=== PATIENT | male | born 1970 | race Two or more races ===

== ENCOUNTER 2019-08-04 16:55 | Inpatient (IN) | payer MEDICARE ==
[~2019-08-04] VITALS: Ht 177.8 cm; Wt 103.2 kg
[2019-08-04] MEDS ORDERED: LOSA-30 PO (17:04)
[2019-08-04] MEDS ORDERED: ONDANSETRON HCL 4 MG/2 ML VIAL IVP PRN (17:45)
[2019-08-04] MEDS ORDERED: ACETAMINOPHEN 325 MG TABLET PO PRN (17:45)
[2019-08-04] MEDS ORDERED: 0.9% SODIUM CHLORIDE 10 ML SYRINGE IVP PRN ×2 (17:45→20:15)
[2019-08-04] MEDS ORDERED: AZITHROMYCIN 500 MG/NS 250 ML IV ONE (18:00)
[2019-08-04] MEDS ORDERED: FAMOTIDINE 10 MG/ML 2 ML VIAL IVP SCH (20:00)
[2019-08-04] MEDS ORDERED: OXYGEN THERAPY IH SCH (20:00)
[2019-08-04] MEDS ORDERED: MAGNESIUM HYDROXIDE SUSPENSION 30 ML UDCUP PO PRN (20:15)
[2019-08-04] MEDS ORDERED: OxyCODONE HCL/ACETAMINOPHEN 5-325 MG TABLET PO PRN ×2 (20:15)
[2019-08-04 20:54] LABS: HEMATOCRIT 41.8 % (41-53); HEMOGLOBIN 14.3 g/dL (13.5-17.5); MEAN CORPUSCULAR HEMOGLOBIN 30.8 pg (26.0-34.0); MEAN CORPUSCULAR HGB CONC 34.2 G/dL (31.0-37.0); MEAN CORPUSCULAR VOLUME 90 fL (80-100); PLATELET COUNT (AUTO) 271 K/uL (150-450); RED BLOOD CELL COUNT(AUTO) 4.65 MIL/uL (4.50-5.90); RED CELL DISTRIBUTION WIDTH 13.2 % (11.5-14.5)
[2019-08-04 21:00] VITALS: BP 148/84
[2019-08-04] MEDS: HYDROXYCHLOROQUINE SULFATE 200 MG TABLET PO SCH (21:00)
[2019-08-04] MEDS ORDERED: HYDROXYCHLOROQUINE SULFATE 200 MG TABLET PO ONE (21:00)
[2019-08-04] MEDS: DOCUSATE SODIUM 100 MG CAPSULE PO SCH ×2 (21:00→21:54)
[2019-08-04] MEDS ORDERED: ZINC SULFATE 220 MG CAPSULE PO ONE (21:00)
[2019-08-04 21:09] LABS: ANION GAP 8 mmol/L (8-16); CARBON DIOXIDE 27 mmol/L (22-29); CHLORIDE 89 mmol/L (98-107); CREATININE 1.12 mg/dL (0.60-1.30); GLOMERULAR FILTR. RATE CALC > 60 mL/min (>60); GLUCOSE,RANDOM 141 mg/dL (70-110); POTASSIUM 3.1 mmol/L (3.5-5.1); UREA NITROGEN, BLOOD 15 mg/dL (7-18)
[2019-08-04 21:12] LABS: SODIUM SERUM 124 mmol/L (136-145)
[2019-08-04] MEDS ORDERED: POTASSIUM CHL 10 MEQ/WATER 50 ML IV PRN (21:30)
[2019-08-04] MEDS: ACETAMINOPHEN 325 MG TABLET PO PRN (21:54)
[2019-08-04] MEDS: POTASSIUM CHLORIDE 20 MEQ ER TABLET PO PRN (21:54)
[2019-08-04] MEDS: ENOXAPARIN SODIUM 60 MG/0.6 ML PF SYRINGE SQ SCH (21:54)
[2019-08-04] MEDS: FAMOTIDINE 10 MG/ML 2 ML VIAL IVP SCH (21:55)
[2019-08-04] MEDS: SODIUM CHLORIDE 0.9% 1,000 ML IV SCH (21:55)
[2019-08-04 23:19] LABS: BAND NEUTROPHILS % (MANUAL) 16 % (0-5); LYMPHOCYTES % (MANUAL) 4 % (22-44); MONOCYTES % (MANUAL) 5 % (2-9); SEGMENTED NEUTROPHILS % 75 % (40-70)
[2019-08-05] VITALS (7 sets, daily range): BP systolic 138–150; BP diastolic 69–96
[2019-08-05] MEDS ORDERED: PNEUMOCOCCAL VACCINE POLYVALENT 0.5 ML VIAL [PPSV23] IM ONE (00:15)
[2019-08-05] MEDS ORDERED: IOVERSOL 350 MG/ML 100 ML VIAL ONE (01:39)
[2019-08-05] MEDS ORDERED: SODIUM CHLORIDE 0.9% 100 ML ONE ×2 (01:39→04:48)
[2019-08-05] MEDS ORDERED: IOVERSOL 320 MG/ML 100 ML VIAL ONE (04:48)
[2019-08-05 07:32] LABS: BASOPHILS % (AUTO) 0.1 % (0.0-2.0); EOSINOPHILS % (AUTO) 0 % (1.0-6.0); HEMOGLOBIN 14.1 g/dL (13.5-17.5); LYMPHOCYTES # (AUTO) 0.5 K/uL (1.0-4.8); LYMPHOCYTES % (AUTO) 4.2 % (22.0-44.0); MEAN CORPUSCULAR HEMOGLOBIN 30.8 pg (26.0-34.0); MEAN CORPUSCULAR HGB CONC 34.3 G/dL (31.0-37.0); MEAN CORPUSCULAR VOLUME 90 fL (80-100); MONOCYTES # (AUTO) 0.8 K/uL (0.1-1.0); MONOCYTES % (AUTO) 6.3 % (2.0-9.0); NEUTROPHILS # (AUTO) 11.7 K/uL (1.8-7.7); PLATELET COUNT (AUTO) 296 K/uL (150-450); RED BLOOD CELL COUNT(AUTO) 4.56 MIL/uL (4.50-5.90); RED CELL DISTRIBUTION WIDTH 13.3 % (11.5-14.5)
[2019-08-05 07:52] LABS: NEUTROPHILS % (AUTO) 89.4 % (40.0-70.0)
[2019-08-05] MEDS: ENOXAPARIN SODIUM 60 MG/0.6 ML PF SYRINGE SQ SCH ×2 (08:32→21:04)
[2019-08-05] MEDS: SODIUM CHLORIDE 0.9% 1,000 ML IV SCH ×2 (08:32→15:01)
[2019-08-05] MEDS: HYDROXYCHLOROQUINE SULFATE 200 MG TABLET PO SCH ×2 (08:33→21:04)
[2019-08-05] MEDS: FAMOTIDINE 10 MG/ML 2 ML VIAL IVP SCH (08:33)
[2019-08-05] MEDS: DOCUSATE SODIUM 100 MG CAPSULE PO SCH ×2 (08:45→21:00)
[2019-08-05] MEDS ORDERED: ZINC SULFATE 220 MG CAPSULE PO SCH (09:00)
[2019-08-05 09:01] LABS: ALANINE AMINOTRANSFERASE 35 U/L (12-78); ALKALINE PHOSPHATASE 75 U/L (46-116); ASPARTATE AMINOTRANSFERASE 32 U/L (15-37); BILIRUBIN,TOTAL 0.6 mg/dL (0.1-1.0); CALCIUM, TOTAL 9.3 mg/dL (8.8-10.5); CHLORIDE 93 mmol/L (98-107); CREATINE KINASE, TOTAL ONLY 131 U/L (39-308); FERRITIN 1623 ng/mL (26-388); GLOMERULAR FILTR. RATE CALC > 60 mL/min (>60); GLUCOSE,RANDOM 92 mg/dL (70-110); LACTATE DEHYDROGENASE 278 U/L (85-227); POTASSIUM 3.1 mmol/L (3.5-5.1); SODIUM SERUM 130 mmol/L (136-145); TOTAL PROTEIN, SERUM 7.7 g/dL (6.4-8.2); TRIGLYCERIDES 216 mg/dL (15-150); UREA NITROGEN, BLOOD 16 mg/dL (7-18)
[2019-08-05 09:32] LABS: ANION GAP 18 mmol/L (8-16); CARBON DIOXIDE 19 mmol/L (22-29)
[2019-08-05 09:48] LABS: ALBUMIN 2.8 g/dL (3.4-5.0); C-REACTIVE PROTEIN QUANT 33.68 mg/dL (0.00-0.30)
[2019-08-05] MEDS: POTASSIUM CHLORIDE 20 MEQ ER TABLET PO PRN (11:17)
[2019-08-05] MEDS ORDERED: POTASSIUM CHL 10 MEQ/WATER 50 ML IV PRN (11:45)
[2019-08-05] MEDS: ACETAMINOPHEN 325 MG TABLET PO PRN (12:50)
[2019-08-05] MEDS ORDERED: LOPERAMIDE HCL 2 MG CAPSULE PO PRN (14:15)
[2019-08-05] MEDS: AZITHROMYCIN 500 MG/NS 250 ML IV SCH (17:58)
[2019-08-05] MEDS: CefTRIAXone 1 GM/DEXTROSE 50 ML IV SCH (21:50)
[2019-08-05] MEDS: ZINC SULFATE 220 MG CAPSULE PO SCH (22:45)
[2019-08-06] MEDS: SODIUM CHLORIDE 0.9% 1,000 ML IV SCH ×3 (02:49→21:00)
[2019-08-06 03:53] VITALS: BP 155/89
[2019-08-06 07:02] LABS: BASOPHILS % (AUTO) 0.3 % (0.0-2.0); EOSINOPHILS % (AUTO) 0.1 % (1.0-6.0); HEMATOCRIT 40.3 % (41-53); HEMOGLOBIN 13.4 g/dL (13.5-17.5); LYMPHOCYTES # (AUTO) 0.5 K/uL (1.0-4.8); LYMPHOCYTES % (AUTO) 6.5 % (22.0-44.0); MEAN CORPUSCULAR HEMOGLOBIN 30.3 pg (26.0-34.0); MEAN CORPUSCULAR HGB CONC 33.3 G/dL (31.0-37.0); MEAN CORPUSCULAR VOLUME 91 fL (80-100); MONOCYTES # (AUTO) 0.7 K/uL (0.1-1.0); MONOCYTES % (AUTO) 9.9 % (2.0-9.0); NEUTROPHILS % (AUTO) 83.2 % (40.0-70.0); PLATELET COUNT (AUTO) 306 K/uL (150-450); RED BLOOD CELL COUNT(AUTO) 4.43 MIL/uL (4.50-5.90); RED CELL DISTRIBUTION WIDTH 13.5 % (11.5-14.5)
[2019-08-06] MEDS: DOCUSATE SODIUM 100 MG CAPSULE PO SCH ×2 (09:00→21:00)
[2019-08-06] MEDS: ENOXAPARIN SODIUM 60 MG/0.6 ML PF SYRINGE SQ SCH ×2 (09:24→20:23)
[2019-08-06] MEDS: ZINC SULFATE 220 MG CAPSULE PO SCH ×2 (09:24→20:23)
[2019-08-06] MEDS: HYDROXYCHLOROQUINE SULFATE 200 MG TABLET PO SCH ×2 (09:25→20:23)
[2019-08-06] MEDS: FAMOTIDINE 10 MG/ML 2 ML VIAL IVP SCH (09:25)
[2019-08-06 09:36] LABS: C-REACTIVE PROTEIN QUANT 19.98 mg/dL (0.00-0.30)
[2019-08-06 12:49] VITALS: BP 161/119
[2019-08-06 15:32] VITALS: BP 168/98
[2019-08-06] MEDS: AZITHROMYCIN 500 MG/NS 250 ML IV SCH (16:19)
[2019-08-06 17:05] VITALS: BP 168/105
[2019-08-06 20:17] LABS: ABG A-A DIFF O2 574.5 mmHg (10-20.0); ABG BASE EXCESS 0.9 mmol/L (-2.0-3.0); ABG CARBOXYHEMOGLOBIN 0.5 % (0.0-1.5); ABG HCO3 25.6 mmol/L (22.0-26.0); ABG METHEMOGLOBIN 0.3 % (0.0-1.5); ABG OXYGEN CONTENT 19.3 mL/dL (15.0-23.0); ABG OXYGEN SATURATION 97.8 % (95.0-98.0); ABG PCO2 36 mmHg (35-45); ABG PH 7.458 (7.35-7.450); ABG TOTAL HEMOGLOBIN 14.1 G/dL (12.0-18.0); PO2, ARTERIAL BG 101.5 mmHg (84.0-92.0); SOURCE, BLOOD GAS ARTERIAL; TEMPERATURE, FAHRENHEIT, BG 99.5 FAHREN (96.0-98.6)
[2019-08-06 20:18] LABS: O2 DEVICE,BLOOD GAS NON REBREATHER (ROOM AIR); SITE, BLOOD GAS RT RADIAL
[2019-08-06 20:20] VITALS: BP 158/98
[2019-08-06] MEDS: AmLODIPine BESYLATE 10 MG TABLET PO SCH (20:23)
[2019-08-06] MEDS: CefTRIAXone 1 GM/DEXTROSE 50 ML IV SCH (20:24)
[2019-08-06 23:16] VITALS: BP 142/81
[2019-08-07] VITALS (8 sets, daily range): BP systolic 140–163; BP diastolic 67–95
[2019-08-07] MEDS: ACETAMINOPHEN 325 MG TABLET PO PRN ×3 (00:10→22:31)
[2019-08-07 08:37] LABS: BASOPHILS % (AUTO) 0.4 % (0.0-2.0); EOSINOPHILS % (AUTO) 0.1 % (1.0-6.0); HEMATOCRIT 39.6 % (41-53); HEMOGLOBIN 13.5 g/dL (13.5-17.5); LYMPHOCYTES # (AUTO) 0.3 K/uL (1.0-4.8); LYMPHOCYTES % (AUTO) 3.9 % (22.0-44.0); MEAN CORPUSCULAR HEMOGLOBIN 30.9 pg (26.0-34.0); MEAN CORPUSCULAR HGB CONC 34.2 G/dL (31.0-37.0); MEAN CORPUSCULAR VOLUME 91 fL (80-100); MONOCYTES # (AUTO) 0.6 K/uL (0.1-1.0); MONOCYTES % (AUTO) 7.7 % (2.0-9.0); NEUTROPHILS # (AUTO) 6.9 K/uL (1.8-7.7); PLATELET COUNT (AUTO) 323 K/uL (150-450); RED BLOOD CELL COUNT(AUTO) 4.37 MIL/uL (4.50-5.90); RED CELL DISTRIBUTION WIDTH 13.6 % (11.5-14.5)
[2019-08-07] MEDS: DOCUSATE SODIUM 100 MG CAPSULE PO SCH ×2 (09:00→22:06)
[2019-08-07 09:25] LABS: NEUTROPHILS % (AUTO) 87.9 % (40.0-70.0)
[2019-08-07 09:28] LABS: ALANINE AMINOTRANSFERASE 89 U/L (12-78); ALBUMIN 2.6 g/dL (3.4-5.0); ALKALINE PHOSPHATASE 69 U/L (46-116); ANION GAP 12 mmol/L (8-16); ASPARTATE AMINOTRANSFERASE 61 U/L (15-37); C-REACTIVE PROTEIN QUANT 22.01 mg/dL (0.00-0.30); CALCIUM, TOTAL 8.5 mg/dL (8.8-10.5); CARBON DIOXIDE 23 mmol/L (22-29); CHLORIDE 98 mmol/L (98-107); CREATININE 0.88 mg/dL (0.60-1.30); GLOMERULAR FILTR. RATE CALC > 60 mL/min (>60); GLUCOSE,RANDOM 109 mg/dL (70-110); LACTATE DEHYDROGENASE 262 U/L (85-227); POTASSIUM 3.3 mmol/L (3.5-5.1); SODIUM SERUM 133 mmol/L (136-145); TOTAL PROTEIN, SERUM 7.4 g/dL (6.4-8.2); UREA NITROGEN, BLOOD 10 mg/dL (7-18)
[2019-08-07] MEDS: HydrALAZINE HCL 20 MG/ML VIAL IVP PRN ×2 (10:04→19:08)
[2019-08-07] MEDS: ENOXAPARIN SODIUM 60 MG/0.6 ML PF SYRINGE SQ SCH ×2 (10:05→22:06)
[2019-08-07] MEDS: POTASSIUM CHLORIDE 20 MEQ ER TABLET PO PRN (10:05)
[2019-08-07] MEDS: ZINC SULFATE 220 MG CAPSULE PO SCH ×2 (10:05→22:06)
[2019-08-07] MEDS: HYDROXYCHLOROQUINE SULFATE 200 MG TABLET PO SCH ×2 (10:05→22:06)
[2019-08-07] MEDS: FAMOTIDINE 10 MG/ML 2 ML VIAL IVP SCH (10:05)
[2019-08-07 11:41] LABS: FERRITIN 1746 ng/mL (26-388)
[2019-08-07] MEDS: CARVEDILOL 3.125 MG TABLET PO SCH ×2 (14:10→22:06)
[2019-08-07 16:47] LABS: ABG A-A DIFF O2 611.6 mmHg (10-20.0); ABG BASE EXCESS 1.2 mmol/L (-2.0-3.0); ABG CARBOXYHEMOGLOBIN 0.6 % (0.0-1.5); ABG HCO3 25.9 mmol/L (22.0-26.0); ABG METHEMOGLOBIN 0.3 % (0.0-1.5); ABG OXYGEN CONTENT 17.8 mL/dL (15.0-23.0); ABG OXYGEN SATURATION 92.4 % (95.0-98.0); ABG OXYHEMOGLOBIN 91.6 % (94.0-100.0); ABG PCO2 35 mmHg (35-45); ABG PH 7.468 (7.35-7.450); ABG TOTAL HEMOGLOBIN 13.8 G/dL (12.0-18.0); PO2, ARTERIAL BG 63.4 mmHg (84.0-92.0); SOURCE, BLOOD GAS ARTERIAL; TEMPERATURE, FAHRENHEIT, BG 100.6 FAHREN (96.0-98.6)
[2019-08-07 16:48] LABS: SITE, BLOOD GAS RT RADIAL
[2019-08-07 16:49] LABS: O2 DEVICE,BLOOD GAS NON REBREATHER (ROOM AIR)
[2019-08-07] MEDS: AZITHROMYCIN 500 MG/NS 250 ML IV SCH (19:07)
[2019-08-07] MEDS ORDERED: REMDESIVIR **INVESTIGATIONAL** 200 MG in SODIUM CHLORIDE 0.9% 210 ML IV ONE (20:00)
[2019-08-07] MEDS: CefTRIAXone 1 GM/DEXTROSE 50 ML IV SCH (22:06)
[2019-08-07] MEDS: AmLODIPine BESYLATE 10 MG TABLET PO SCH (22:06)
[2019-08-08] VITALS (11 sets, daily range): BP systolic 142–159; BP diastolic 78–95
[2019-08-08 08:22] LABS: ALANINE AMINOTRANSFERASE 94 U/L (12-78); ALBUMIN 2.4 g/dL (3.4-5.0); ALKALINE PHOSPHATASE 71 U/L (46-116); ANION GAP 15 mmol/L (8-16); ASPARTATE AMINOTRANSFERASE 53 U/L (15-37); BILIRUBIN,TOTAL 0.8 mg/dL (0.1-1.0); CALCIUM, TOTAL 8.6 mg/dL (8.8-10.5); CARBON DIOXIDE 22 mmol/L (22-29); CHLORIDE 96 mmol/L (98-107); CREATININE 0.78 mg/dL (0.60-1.30); GLOMERULAR FILTR. RATE CALC > 60 mL/min (>60); GLUCOSE,RANDOM 97 mg/dL (70-110); LACTATE DEHYDROGENASE 274 U/L (85-227); POTASSIUM 3.3 mmol/L (3.5-5.1); SODIUM SERUM 133 mmol/L (136-145); TOTAL PROTEIN, SERUM 7.4 g/dL (6.4-8.2); UREA NITROGEN, BLOOD 10 mg/dL (7-18)
[2019-08-08 09:34] LABS: C-REACTIVE PROTEIN QUANT 25.83 mg/dL (0.00-0.30); FERRITIN 2749 ng/mL (26-388)
[2019-08-08] MEDS: ZINC SULFATE 220 MG CAPSULE PO SCH ×2 (10:18→20:56)
[2019-08-08] MEDS: FAMOTIDINE 10 MG/ML 2 ML VIAL IVP SCH (10:18)
[2019-08-08] MEDS: DOCUSATE SODIUM 100 MG CAPSULE PO SCH ×2 (10:18→20:53)
[2019-08-08] MEDS: ENOXAPARIN SODIUM 60 MG/0.6 ML PF SYRINGE SQ SCH ×2 (10:18→20:56)
[2019-08-08] MEDS: CARVEDILOL 3.125 MG TABLET PO SCH ×2 (10:18→21:06)
[2019-08-08] MEDS: HYDROXYCHLOROQUINE SULFATE 200 MG TABLET PO SCH ×2 (10:18→20:56)
[2019-08-08] MEDS: POTASSIUM CHLORIDE 20 MEQ ER TABLET PO PRN (14:22)
[2019-08-08] MEDS: AZITHROMYCIN 500 MG/NS 250 ML IV SCH (18:08)
[2019-08-08] MEDS: CefTRIAXone 1 GM/DEXTROSE 50 ML IV SCH (20:53)
[2019-08-08] MEDS: AmLODIPine BESYLATE 10 MG TABLET PO SCH (21:06)
[2019-08-09] VITALS (8 sets, daily range): BP systolic 141–159; BP diastolic 78–94
[2019-08-09] MEDS: REMDESIVIR **INVESTIGATIONAL** 100 MG in SODIUM CHLORIDE 0.9% 230 ML IV SCH (00:13)
[2019-08-09 07:17] LABS: BASOPHILS % (AUTO) 0.2 % (0.0-2.0); EOSINOPHILS % (AUTO) 0.5 % (1.0-6.0); HEMATOCRIT 38.7 % (41-53); HEMOGLOBIN 13.3 g/dL (13.5-17.5); LYMPHOCYTES # (AUTO) 0.4 K/uL (1.0-4.8); LYMPHOCYTES % (AUTO) 4.8 % (22.0-44.0); MEAN CORPUSCULAR HEMOGLOBIN 31.2 pg (26.0-34.0); MEAN CORPUSCULAR HGB CONC 34.4 G/dL (31.0-37.0); MEAN CORPUSCULAR VOLUME 91 fL (80-100); MONOCYTES # (AUTO) 0.6 K/uL (0.1-1.0); MONOCYTES % (AUTO) 6.5 % (2.0-9.0); NEUTROPHILS # (AUTO) 8.2 K/uL (1.8-7.7); PLATELET COUNT (AUTO) 458 K/uL (150-450); RED BLOOD CELL COUNT(AUTO) 4.27 MIL/uL (4.50-5.90); RED CELL DISTRIBUTION WIDTH 14.1 % (11.5-14.5)
[2019-08-09 07:35] LABS: CHLORIDE 97 mmol/L (98-107); POTASSIUM 3.4 mmol/L (3.5-5.1); SODIUM SERUM 131 mmol/L (136-145)
[2019-08-09 07:52] LABS: ALANINE AMINOTRANSFERASE 70 U/L (12-78); ALBUMIN 2.5 g/dL (3.4-5.0); ALKALINE PHOSPHATASE 70 U/L (46-116); ANION GAP 10 mmol/L (8-16); ASPARTATE AMINOTRANSFERASE 29 U/L (15-37); BILIRUBIN,TOTAL 0.7 mg/dL (0.1-1.0); C-REACTIVE PROTEIN QUANT 23.07 mg/dL (0.00-0.30); CALCIUM, TOTAL 8.6 mg/dL (8.8-10.5); CARBON DIOXIDE 24 mmol/L (22-29); CREATININE 0.74 mg/dL (0.60-1.30); GLOMERULAR FILTR. RATE CALC > 60 mL/min (>60); GLUCOSE,RANDOM 99 mg/dL (70-110); TOTAL PROTEIN, SERUM 7.2 g/dL (6.4-8.2); UREA NITROGEN, BLOOD 10 mg/dL (7-18)
[2019-08-09] MEDS: ENOXAPARIN SODIUM 60 MG/0.6 ML PF SYRINGE SQ SCH ×2 (08:39→21:10)
[2019-08-09] MEDS: HYDROXYCHLOROQUINE SULFATE 200 MG TABLET PO SCH (08:39)
[2019-08-09] MEDS: FAMOTIDINE 10 MG/ML 2 ML VIAL IVP SCH (08:39)
[2019-08-09] MEDS: CARVEDILOL 3.125 MG TABLET PO SCH ×2 (08:40→21:09)
[2019-08-09] MEDS: ZINC SULFATE 220 MG CAPSULE PO SCH ×2 (08:40→21:09)
[2019-08-09] MEDS: DOCUSATE SODIUM 100 MG CAPSULE PO SCH ×2 (08:40→21:00)
[2019-08-09] MEDS: POTASSIUM CHLORIDE 20 MEQ ER TABLET PO PRN (08:41)
[2019-08-09 09:12] LABS: FERRITIN 2362 ng/mL (26-388)
[2019-08-09] MEDS: CefTRIAXone 1 GM/DEXTROSE 50 ML IV SCH (21:09)
[2019-08-09] MEDS: AmLODIPine BESYLATE 10 MG TABLET PO SCH (21:09)
[2019-08-10] VITALS (9 sets, daily range): BP systolic 141–157; BP diastolic 78–89
[2019-08-10] MEDS: REMDESIVIR **INVESTIGATIONAL** 100 MG in SODIUM CHLORIDE 0.9% 230 ML IV SCH (00:05)
[2019-08-10 08:55] LABS: ALANINE AMINOTRANSFERASE 63 U/L (12-78); ALBUMIN 2.5 g/dL (3.4-5.0); ALKALINE PHOSPHATASE 66 U/L (46-116); ANION GAP 10 mmol/L (8-16); ASPARTATE AMINOTRANSFERASE 31 U/L (15-37); BILIRUBIN,TOTAL 0.6 mg/dL (0.1-1.0); C-REACTIVE PROTEIN QUANT 15.98 mg/dL (0.00-0.30); CALCIUM, TOTAL 8.3 mg/dL (8.8-10.5); CARBON DIOXIDE 25 mmol/L (22-29); CHLORIDE 100 mmol/L (98-107); CREATININE 0.89 mg/dL (0.60-1.30); FERRITIN 1832 ng/mL (26-388); GLOMERULAR FILTR. RATE CALC > 60 mL/min (>60); GLUCOSE,RANDOM 98 mg/dL (70-110); POTASSIUM 3.5 mmol/L (3.5-5.1); SODIUM SERUM 135 mmol/L (136-145); TOTAL PROTEIN, SERUM 7.1 g/dL (6.4-8.2); UREA NITROGEN, BLOOD 11 mg/dL (7-18)
[2019-08-10] MEDS: DOCUSATE SODIUM 100 MG CAPSULE PO SCH ×2 (09:00→21:00)
[2019-08-10 09:07] LABS: LACTATE DEHYDROGENASE 220 U/L (85-227)
[2019-08-10] MEDS: FAMOTIDINE 10 MG/ML 2 ML VIAL IVP SCH (09:28)
[2019-08-10] MEDS: ZINC SULFATE 220 MG CAPSULE PO SCH ×2 (09:30→22:16)
[2019-08-10] MEDS: CARVEDILOL 3.125 MG TABLET PO SCH ×2 (09:31→22:16)
[2019-08-10] MEDS: ENOXAPARIN SODIUM 60 MG/0.6 ML PF SYRINGE SQ SCH ×2 (09:45→22:16)
[2019-08-10 10:07] LABS: LEGIONELLA PNEUMO AG URINE Negative (Negative); ORGANISM ID Not indicated.; S PNEUMO SOURCE Urine; STREP PNEUMONIAE AG URINE Negative (Negative); STREP.PNEUMO BODY FLUID CULT. Not indicated.
[2019-08-10] MEDS: ACETAMINOPHEN 325 MG TABLET PO PRN (12:17)
[2019-08-10] MEDS: AmLODIPine BESYLATE 10 MG TABLET PO SCH (22:16)
[2019-08-11] MEDS: REMDESIVIR **INVESTIGATIONAL** 100 MG in SODIUM CHLORIDE 0.9% 230 ML IV SCH (00:36)
[2019-08-11 00:50] VITALS: BP 138/82
[2019-08-11 05:30] VITALS: BP 142/75
[2019-08-11 07:50] VITALS: BP 141/78
[2019-08-11 07:50] LABS: EOSINOPHILS % (AUTO) 2.3 % (1.0-6.0); HEMATOCRIT 40.3 % (41-53); HEMOGLOBIN 13.5 g/dL (13.5-17.5); LYMPHOCYTES # (AUTO) 0.4 K/uL (1.0-4.8); LYMPHOCYTES % (AUTO) 5.8 % (22.0-44.0); MEAN CORPUSCULAR HEMOGLOBIN 30.6 pg (26.0-34.0); MEAN CORPUSCULAR HGB CONC 33.4 G/dL (31.0-37.0); MEAN CORPUSCULAR VOLUME 92 fL (80-100); MONOCYTES # (AUTO) 0.5 K/uL (0.1-1.0); NEUTROPHILS # (AUTO) 5.8 K/uL (1.8-7.7); NEUTROPHILS % (AUTO) 83.9 % (40.0-70.0); PLATELET COUNT (AUTO) 474 K/uL (150-450); RED CELL DISTRIBUTION WIDTH 13.5 % (11.5-14.5)
[2019-08-11 08:32] LABS: C-REACTIVE PROTEIN QUANT 10.76 mg/dL (0.00-0.30)
[2019-08-11] MEDS: CARVEDILOL 3.125 MG TABLET PO SCH ×2 (11:10→21:38)
[2019-08-11] MEDS: DOCUSATE SODIUM 100 MG CAPSULE PO SCH ×2 (11:10→21:00)
[2019-08-11] MEDS: ZINC SULFATE 220 MG CAPSULE PO SCH ×2 (11:10→21:38)
[2019-08-11] MEDS: AmLODIPine BESYLATE 10 MG TABLET PO SCH (11:10)
[2019-08-11] MEDS: FAMOTIDINE 10 MG/ML 2 ML VIAL IVP SCH (11:10)
[2019-08-11 12:45] VITALS: BP 140/77
[2019-08-11 16:45] VITALS: BP 147/92
[2019-08-11 20:27] VITALS: BP 131/81
[2019-08-11] MEDS: ENOXAPARIN SODIUM 80 MG/0.8 ML PF SYRINGE SQ SCH (21:39)
[2019-08-12] VITALS (7 sets, daily range): BP systolic 102–153; BP diastolic 71–87
[2019-08-12] MEDS: REMDESIVIR **INVESTIGATIONAL** 100 MG in SODIUM CHLORIDE 0.9% 230 ML IV SCH (00:13)
[2019-08-12 07:18] LABS: EOSINOPHILS % (AUTO) 1.5 % (1.0-6.0); HEMATOCRIT 39.5 % (41-53); HEMOGLOBIN 13.4 g/dL (13.5-17.5); LYMPHOCYTES # (AUTO) 0.5 K/uL (1.0-4.8); LYMPHOCYTES % (AUTO) 7.9 % (22.0-44.0); MEAN CORPUSCULAR HEMOGLOBIN 31.1 pg (26.0-34.0); MEAN CORPUSCULAR VOLUME 91 fL (80-100); MONOCYTES # (AUTO) 0.6 K/uL (0.1-1.0); MONOCYTES % (AUTO) 8.7 % (2.0-9.0); NEUTROPHILS # (AUTO) 5.4 K/uL (1.8-7.7); NEUTROPHILS % (AUTO) 80.9 % (40.0-70.0); PLATELET COUNT (AUTO) 489 K/uL (150-450); RED BLOOD CELL COUNT(AUTO) 4.32 MIL/uL (4.50-5.90); RED CELL DISTRIBUTION WIDTH 13.6 % (11.5-14.5)
[2019-08-12 08:06] LABS: ALANINE AMINOTRANSFERASE 53 U/L (12-78); ALBUMIN 2.4 g/dL (3.4-5.0); ALKALINE PHOSPHATASE 61 U/L (46-116); ANION GAP 6 mmol/L (8-16); ASPARTATE AMINOTRANSFERASE 26 U/L (15-37); BILIRUBIN,TOTAL 0.4 mg/dL (0.1-1.0); C-REACTIVE PROTEIN QUANT 6.55 mg/dL (0.00-0.30); CALCIUM, TOTAL 8.1 mg/dL (8.8-10.5); CARBON DIOXIDE 29 mmol/L (22-29); CHLORIDE 99 mmol/L (98-107); CREATININE 0.92 mg/dL (0.60-1.30); FERRITIN 822 ng/mL (26-388); GLOMERULAR FILTR. RATE CALC > 60 mL/min (>60); GLUCOSE,RANDOM 102 mg/dL (70-110); LACTATE DEHYDROGENASE 176 U/L (85-227); POTASSIUM 3.7 mmol/L (3.5-5.1); SODIUM SERUM 134 mmol/L (136-145); TOTAL PROTEIN, SERUM 6.8 g/dL (6.4-8.2); UREA NITROGEN, BLOOD 11 mg/dL (7-18)
[2019-08-12] MEDS: FAMOTIDINE 10 MG/ML 2 ML VIAL IVP SCH (08:59)
[2019-08-12] MEDS: DOCUSATE SODIUM 100 MG CAPSULE PO SCH ×3 (08:59→21:53)
[2019-08-12] MEDS: CARVEDILOL 3.125 MG TABLET PO SCH ×2 (08:59→21:53)
[2019-08-12] MEDS: ENOXAPARIN SODIUM 80 MG/0.8 ML PF SYRINGE SQ SCH ×2 (08:59→21:53)
[2019-08-12] MEDS: ZINC SULFATE 220 MG CAPSULE PO SCH ×2 (08:59→21:53)
[2019-08-12] MEDS: AmLODIPine BESYLATE 10 MG TABLET PO SCH (21:53)
[2019-08-13 04:51] VITALS: BP 115/77
[2019-08-13 08:26] LABS: ALANINE AMINOTRANSFERASE 52 U/L (12-78); ALBUMIN 2.6 g/dL (3.4-5.0); ALKALINE PHOSPHATASE 60 U/L (46-116); ANION GAP 6 mmol/L (8-16); ASPARTATE AMINOTRANSFERASE 26 U/L (15-37); BILIRUBIN,TOTAL 0.6 mg/dL (0.1-1.0); CALCIUM, TOTAL 8.6 mg/dL (8.8-10.5); CARBON DIOXIDE 30 mmol/L (22-29); CHLORIDE 100 mmol/L (98-107); CREATININE 0.85 mg/dL (0.60-1.30); FERRITIN 703 ng/mL (26-388); GLOMERULAR FILTR. RATE CALC > 60 mL/min (>60); GLUCOSE,RANDOM 100 mg/dL (70-110); POTASSIUM 4.1 mmol/L (3.5-5.1); SODIUM SERUM 136 mmol/L (136-145); TOTAL PROTEIN, SERUM 7.1 g/dL (6.4-8.2); UREA NITROGEN, BLOOD 11 mg/dL (7-18)
[2019-08-13] MEDS: DOCUSATE SODIUM 100 MG CAPSULE PO SCH ×2 (09:00→21:36)
[2019-08-13 09:05] VITALS: BP 133/59
[2019-08-13] MEDS: CARVEDILOL 3.125 MG TABLET PO SCH ×2 (10:09→21:36)
[2019-08-13] MEDS: FAMOTIDINE 10 MG/ML 2 ML VIAL IVP SCH (10:09)
[2019-08-13] MEDS: ZINC SULFATE 220 MG CAPSULE PO SCH ×2 (10:09→21:36)
[2019-08-13] MEDS: ENOXAPARIN SODIUM 80 MG/0.8 ML PF SYRINGE SQ SCH ×2 (11:23→21:37)
[2019-08-13 15:26] VITALS: BP 130/75
[2019-08-13 21:30] VITALS: BP 128/76
[2019-08-13] MEDS: AmLODIPine BESYLATE 10 MG TABLET PO SCH (21:36)
[2019-08-14 03:54] VITALS: BP 133/71
[2019-08-14 07:01] LABS: BASOPHILS % (AUTO) 2.8 % (0.0-2.0); EOSINOPHILS % (AUTO) 1.6 % (1.0-6.0); HEMATOCRIT 41.5 % (41-53); HEMOGLOBIN 13.6 g/dL (13.5-17.5); LYMPHOCYTES % (AUTO) 16.9 % (22.0-44.0); MEAN CORPUSCULAR HGB CONC 32.7 G/dL (31.0-37.0); MEAN CORPUSCULAR VOLUME 92 fL (80-100); MONOCYTES # (AUTO) 0.6 K/uL (0.1-1.0); MONOCYTES % (AUTO) 11.1 % (2.0-9.0); NEUTROPHILS # (AUTO) 3.8 K/uL (1.8-7.7); NEUTROPHILS % (AUTO) 67.6 % (40.0-70.0); PLATELET COUNT (AUTO) 471 K/uL (150-450); RED BLOOD CELL COUNT(AUTO) 4.52 MIL/uL (4.50-5.90); RED CELL DISTRIBUTION WIDTH 13.4 % (11.5-14.5)
[2019-08-14 07:48] LABS: ALANINE AMINOTRANSFERASE 50 U/L (12-78); ALBUMIN 2.6 g/dL (3.4-5.0); ALKALINE PHOSPHATASE 64 U/L (46-116); ANION GAP 5 mmol/L (8-16); ASPARTATE AMINOTRANSFERASE 29 U/L (15-37); BILIRUBIN,TOTAL 0.6 mg/dL (0.1-1.0); C-REACTIVE PROTEIN QUANT 2.39 mg/dL (0.00-0.30); CALCIUM, TOTAL 8.7 mg/dL (8.8-10.5); CARBON DIOXIDE 30 mmol/L (22-29); CHLORIDE 101 mmol/L (98-107); FERRITIN 659 ng/mL (26-388); GLOMERULAR FILTR. RATE CALC > 60 mL/min (>60); GLUCOSE,RANDOM 96 mg/dL (70-110); LACTATE DEHYDROGENASE 309 U/L (85-227); POTASSIUM 4.5 mmol/L (3.5-5.1); SODIUM SERUM 136 mmol/L (136-145); TOTAL PROTEIN, SERUM 7.1 g/dL (6.4-8.2); UREA NITROGEN, BLOOD 13 mg/dL (7-18)
[2019-08-14 08:54] VITALS: BP 130/72
[2019-08-14] MEDS: FAMOTIDINE 10 MG/ML 2 ML VIAL IVP SCH ×2 (09:00→10:10)
[2019-08-14] MEDS: DOCUSATE SODIUM 100 MG CAPSULE PO SCH ×2 (09:00→21:00)
[2019-08-14] MEDS: CARVEDILOL 3.125 MG TABLET PO SCH ×2 (10:10→20:35)
[2019-08-14] MEDS: ENOXAPARIN SODIUM 80 MG/0.8 ML PF SYRINGE SQ SCH ×2 (10:10→20:36)
[2019-08-14] MEDS: ZINC SULFATE 220 MG CAPSULE PO SCH ×2 (10:10→20:35)
[2019-08-14 15:51] VITALS: BP 124/71
[2019-08-14 20:35] VITALS: BP 121/77
[2019-08-14] MEDS: AmLODIPine BESYLATE 10 MG TABLET PO SCH (20:35)
[2019-08-15 05:00] VITALS: BP 118/63
[2019-08-15 08:26] LABS: BASOPHILS % (AUTO) 1.3 % (0.0-2.0); EOSINOPHILS % (AUTO) 2.3 % (1.0-6.0); HEMATOCRIT 42.1 % (41-53); HEMOGLOBIN 13.8 g/dL (13.5-17.5); LYMPHOCYTES % (AUTO) 18.6 % (22.0-44.0); MEAN CORPUSCULAR HEMOGLOBIN 29.9 pg (26.0-34.0); MEAN CORPUSCULAR HGB CONC 32.7 G/dL (31.0-37.0); MEAN CORPUSCULAR VOLUME 92 fL (80-100); MONOCYTES # (AUTO) 0.5 K/uL (0.1-1.0); MONOCYTES % (AUTO) 9.6 % (2.0-9.0); NEUTROPHILS # (AUTO) 3.6 K/uL (1.8-7.7); NEUTROPHILS % (AUTO) 68.2 % (40.0-70.0); PLATELET COUNT (AUTO) 524 K/uL (150-450); RED CELL DISTRIBUTION WIDTH 13.2 % (11.5-14.5)
[2019-08-15] MEDS: DOCUSATE SODIUM 100 MG CAPSULE PO SCH ×3 (08:59→22:04)
[2019-08-15] MEDS: CARVEDILOL 3.125 MG TABLET PO SCH ×2 (08:59→22:04)
[2019-08-15] MEDS: ZINC SULFATE 220 MG CAPSULE PO SCH ×2 (08:59→22:05)
[2019-08-15 09:01] LABS: ANION GAP 6 mmol/L (8-16); C-REACTIVE PROTEIN QUANT 1.29 mg/dL (0.00-0.30); CARBON DIOXIDE 29 mmol/L (22-29); CHLORIDE 101 mmol/L (98-107); CREATININE 0.85 mg/dL (0.60-1.30); FERRITIN 663 ng/mL (26-388); GLOMERULAR FILTR. RATE CALC > 60 mL/min (>60); GLUCOSE,RANDOM 95 mg/dL (70-110); LACTATE DEHYDROGENASE 175 U/L (85-227); POTASSIUM 4.3 mmol/L (3.5-5.1); SODIUM SERUM 136 mmol/L (136-145); UREA NITROGEN, BLOOD 13 mg/dL (7-18)
[2019-08-15] MEDS: ENOXAPARIN SODIUM 80 MG/0.8 ML PF SYRINGE SQ SCH ×2 (09:01→22:05)
[2019-08-15 09:16] VITALS: BP 131/83
[2019-08-15] MEDS: FAMOTIDINE 10 MG/ML 2 ML VIAL IVP SCH (12:28)
[2019-08-15 16:11] VITALS: BP 141/86
[2019-08-15] MEDS: AmLODIPine BESYLATE 10 MG TABLET PO SCH (22:04)
[2019-08-15 22:12] VITALS: BP 125/81
[2019-08-15] MEDS ORDERED: HydrALAZINE HCL 20 MG/ML VIAL IVP PRN (22:30)
[2019-08-16 06:40] VITALS: BP 126/79
[2019-08-16 07:17] LABS: BASOPHILS % (AUTO) 1.3 % (0.0-2.0); EOSINOPHILS % (AUTO) 1.6 % (1.0-6.0); HEMATOCRIT 41.1 % (41-53); HEMOGLOBIN 13.9 g/dL (13.5-17.5); LYMPHOCYTES # (AUTO) 1.1 K/uL (1.0-4.8); LYMPHOCYTES % (AUTO) 21.7 % (22.0-44.0); MEAN CORPUSCULAR HEMOGLOBIN 30.9 pg (26.0-34.0); MEAN CORPUSCULAR HGB CONC 33.7 G/dL (31.0-37.0); MEAN CORPUSCULAR VOLUME 92 fL (80-100); MONOCYTES # (AUTO) 0.5 K/uL (0.1-1.0); MONOCYTES % (AUTO) 9.5 % (2.0-9.0); NEUTROPHILS # (AUTO) 3.4 K/uL (1.8-7.7); NEUTROPHILS % (AUTO) 65.9 % (40.0-70.0); PLATELET COUNT (AUTO) 501 K/uL (150-450); RED BLOOD CELL COUNT(AUTO) 4.48 MIL/uL (4.50-5.90); RED CELL DISTRIBUTION WIDTH 13.5 % (11.5-14.5)
[2019-08-16 08:03] LABS: ANION GAP 6 mmol/L (8-16); C-REACTIVE PROTEIN QUANT 0.72 mg/dL (0.00-0.30); CALCIUM, TOTAL 9.3 mg/dL (8.8-10.5); CARBON DIOXIDE 34 mmol/L (22-29); CHLORIDE 100 mmol/L (98-107); CREATININE 1.05 mg/dL (0.60-1.30); FERRITIN 660 ng/mL (26-388); GLOMERULAR FILTR. RATE CALC > 60 mL/min (>60); GLUCOSE,RANDOM 96 mg/dL (70-110); LACTATE DEHYDROGENASE 165 U/L (85-227); POTASSIUM 4.5 mmol/L (3.5-5.1); SODIUM SERUM 140 mmol/L (136-145); UREA NITROGEN, BLOOD 14 mg/dL (7-18)
[2019-08-16] MEDS: FAMOTIDINE 10 MG/ML 2 ML VIAL IVP SCH (08:24)
[2019-08-16] MEDS: ZINC SULFATE 220 MG CAPSULE PO SCH ×3 (08:27→21:21)
[2019-08-16] MEDS: CARVEDILOL 3.125 MG TABLET PO SCH ×2 (08:27→21:21)
[2019-08-16] MEDS: DOCUSATE SODIUM 100 MG CAPSULE PO SCH ×3 (08:28→21:21)
[2019-08-16 08:45] VITALS: BP 121/81
[2019-08-16] MEDS: ENOXAPARIN SODIUM 80 MG/0.8 ML PF SYRINGE SQ SCH ×2 (10:24→21:21)
[2019-08-16 16:52] VITALS: BP 131/76
[2019-08-16 21:15] VITALS: BP 107/77
[2019-08-16] MEDS: AmLODIPine BESYLATE 10 MG TABLET PO SCH (21:21)
[2019-08-17] VITALS: BP 121/76
[2019-08-17] MEDS: CARVEDILOL 3.125 MG TABLET PO SCH ×3 (00:05→20:41)
[2019-08-17] MEDS: AmLODIPine BESYLATE 10 MG TABLET PO SCH ×2 (00:05→20:42)
[2019-08-17 05:30] VITALS: BP 119/77
[2019-08-17] MEDS: ENOXAPARIN SODIUM 80 MG/0.8 ML PF SYRINGE SQ SCH ×2 (08:43→20:42)
[2019-08-17] MEDS: FAMOTIDINE 10 MG/ML 2 ML VIAL IVP SCH (08:43)
[2019-08-17] MEDS: ZINC SULFATE 220 MG CAPSULE PO SCH ×2 (08:43→20:41)
[2019-08-17 08:44] LABS: ALANINE AMINOTRANSFERASE 53 U/L (12-78); ALKALINE PHOSPHATASE 55 U/L (46-116); ANION GAP 8 mmol/L (8-16); ASPARTATE AMINOTRANSFERASE 24 U/L (15-37); BILIRUBIN,TOTAL 0.5 mg/dL (0.1-1.0); C-REACTIVE PROTEIN QUANT 0.37 mg/dL (0.00-0.30); CALCIUM, TOTAL 8.9 mg/dL (8.8-10.5); CARBON DIOXIDE 30 mmol/L (22-29); CHLORIDE 100 mmol/L (98-107); CREATININE 0.93 mg/dL (0.60-1.30); FERRITIN 593 ng/mL (26-388); GLOMERULAR FILTR. RATE CALC > 60 mL/min (>60); GLUCOSE,RANDOM 89 mg/dL (70-110); POTASSIUM 4.2 mmol/L (3.5-5.1); SODIUM SERUM 138 mmol/L (136-145); TOTAL PROTEIN, SERUM 7.3 g/dL (6.4-8.2); UREA NITROGEN, BLOOD 15 mg/dL (7-18)
[2019-08-17] MEDS: DOCUSATE SODIUM 100 MG CAPSULE PO SCH ×2 (08:56→21:00)
[2019-08-17 08:59] VITALS: BP 129/71
[2019-08-17 16:18] VITALS: BP 139/72
[2019-08-17 20:00] VITALS: BP 114/80
[2019-08-17 23:03] VITALS: BP 117/72
[2019-08-18 05:01] VITALS: BP 114/74
[2019-08-18 07:57] LABS: BASOPHILS % (AUTO) 1.2 % (0.0-2.0); EOSINOPHILS % (AUTO) 1.9 % (1.0-6.0); HEMOGLOBIN 13.9 g/dL (13.5-17.5); LYMPHOCYTES % (AUTO) 24.7 % (22.0-44.0); MEAN CORPUSCULAR HEMOGLOBIN 30.7 pg (26.0-34.0); MEAN CORPUSCULAR VOLUME 90 fL (80-100); MONOCYTES # (AUTO) 0.5 K/uL (0.1-1.0); MONOCYTES % (AUTO) 11.6 % (2.0-9.0); NEUTROPHILS # (AUTO) 2.5 K/uL (1.8-7.7); NEUTROPHILS % (AUTO) 60.6 % (40.0-70.0); PLATELET COUNT (AUTO) 415 K/uL (150-450); RED BLOOD CELL COUNT(AUTO) 4.54 MIL/uL (4.50-5.90)
[2019-08-18 08:14] LABS: ANION GAP 8 mmol/L (8-16); CALCIUM, TOTAL 9.1 mg/dL (8.8-10.5); CARBON DIOXIDE 30 mmol/L (22-29); CHLORIDE 103 mmol/L (98-107); CREATININE 0.76 mg/dL (0.60-1.30); GLOMERULAR FILTR. RATE CALC > 60 mL/min (>60); GLUCOSE,RANDOM 85 mg/dL (70-110); POTASSIUM 4.3 mmol/L (3.5-5.1); SODIUM SERUM 141 mmol/L (136-145); UREA NITROGEN, BLOOD 14 mg/dL (7-18)
[2019-08-18] MEDS: FAMOTIDINE 10 MG/ML 2 ML VIAL IVP SCH (08:17)
[2019-08-18] MEDS: ENOXAPARIN SODIUM 80 MG/0.8 ML PF SYRINGE SQ SCH ×2 (08:17→21:03)
[2019-08-18] MEDS: ZINC SULFATE 220 MG CAPSULE PO SCH ×2 (08:17→21:03)
[2019-08-18] MEDS: DOCUSATE SODIUM 100 MG CAPSULE PO SCH ×2 (08:17→21:00)
[2019-08-18 08:30] VITALS: BP 119/82
[2019-08-18] MEDS: CARVEDILOL 3.125 MG TABLET PO SCH ×2 (08:35→21:03)
[2019-08-18 12:15] VITALS: BP 140/81
[2019-08-18 20:00] VITALS: BP 126/84
[2019-08-18] MEDS: AmLODIPine BESYLATE 10 MG TABLET PO SCH (21:03)
[2019-08-18 23:05] VITALS: BP 109/73
[2019-08-19 08:00] VITALS: BP_SYST 113; BP_SYST 126; BP_DIAS 80; BP_DIAS 85
[2019-08-19 08:08] LABS: EOSINOPHILS % (AUTO) 3.5 % (1.0-6.0); HEMATOCRIT 41.5 % (41-53); HEMOGLOBIN 13.7 g/dL (13.5-17.5); LYMPHOCYTES % (AUTO) 24.5 % (22.0-44.0); MEAN CORPUSCULAR HEMOGLOBIN 30.1 pg (26.0-34.0); MEAN CORPUSCULAR HGB CONC 33.1 G/dL (31.0-37.0); MEAN CORPUSCULAR VOLUME 91 fL (80-100); MONOCYTES # (AUTO) 0.4 K/uL (0.1-1.0); MONOCYTES % (AUTO) 10.5 % (2.0-9.0); NEUTROPHILS # (AUTO) 2.5 K/uL (1.8-7.7); NEUTROPHILS % (AUTO) 59.5 % (40.0-70.0); PLATELET COUNT (AUTO) 389 K/uL (150-450); RED BLOOD CELL COUNT(AUTO) 4.56 MIL/uL (4.50-5.90); RED CELL DISTRIBUTION WIDTH 13.3 % (11.5-14.5)
[2019-08-19 08:37] LABS: ALANINE AMINOTRANSFERASE 60 U/L (12-78); ALBUMIN 3.1 g/dL (3.4-5.0); ALKALINE PHOSPHATASE 54 U/L (46-116); ANION GAP 6 mmol/L (8-16); ASPARTATE AMINOTRANSFERASE 26 U/L (15-37); BILIRUBIN,TOTAL 0.4 mg/dL (0.1-1.0); C-REACTIVE PROTEIN QUANT 0.19 mg/dL (0.00-0.30); CALCIUM, TOTAL 8.9 mg/dL (8.8-10.5); CARBON DIOXIDE 28 mmol/L (22-29); CHLORIDE 103 mmol/L (98-107); CREATININE 1.07 mg/dL (0.60-1.30); FERRITIN 502 ng/mL (26-388); GLOMERULAR FILTR. RATE CALC > 60 mL/min (>60); GLUCOSE,RANDOM 92 mg/dL (70-110); POTASSIUM 4.5 mmol/L (3.5-5.1); SODIUM SERUM 137 mmol/L (136-145); TOTAL PROTEIN, SERUM 7.3 g/dL (6.4-8.2); UREA NITROGEN, BLOOD 15 mg/dL (7-18)
[2019-08-19] MEDS: ENOXAPARIN SODIUM 80 MG/0.8 ML PF SYRINGE SQ SCH (09:01)
[2019-08-19] MEDS: FAMOTIDINE 10 MG/ML 2 ML VIAL IVP SCH (09:01)
[2019-08-19] MEDS: CARVEDILOL 3.125 MG TABLET PO SCH (09:01)
[2019-08-19] MEDS: ZINC SULFATE 220 MG CAPSULE PO SCH (09:01)
[2019-08-19] MEDS: DOCUSATE SODIUM 100 MG CAPSULE PO SCH (09:01)
[2019-08-19] MEDS ORDERED: APIX2.5T PO (11:20)
[2019-08-19] MEDS ORDERED: AMLO10TA55 PO (11:20)
[2019-08-19] MEDS ORDERED: CARV3 PO (11:20)
== END 2019-08-19 12:40 | disposition home or self-care (01) | DRG 871 ==
LOC: EMS 16:55 → 5S 18:44 → 5N 08-05 05:00 → 6S 08-15 20:00
PROVIDERS: ADMIT Internal Medicine; ATTEND Internal Medicine
DX: A41.89 Other specified sepsis (principal); U07.1 COVID-19; J12.89 Other viral pneumonia; J96.01 Acute respiratory failure with hypoxia; E87.1 Hypo-osmolality and hyponatremia; D68.59 Other primary thrombophilia; E66.9 Obesity, unspecified; E87.6 Hypokalemia; I10 Essential (primary) hypertension; Z68.22 Body mass index [BMI] 22.0-22.9, adult; Z82.49 Family history of ischemic heart disease and other diseases of the circulatory system
CPT/HCPCS: 36600; 71275; 82728; 82805; 83520; 83615; 83735; 84132; 84145; 84478; 85379; 86140; 86850; 86900; 86901; 87449; 87899; 93970; G0378; J0360; J0456; J0696; J1650; J3490; J7030; J7050